=== PATIENT | female | born 1930 | race Caucasian/White ===

== ENCOUNTER 2017-06-12 14:26 | Inpatient (IN) | payer MEDICARE, BC ==
--- NOTE | 2017-06-12 15:32 | RAD ---
PORTABLE UPRIGHT FRONTAL CHEST RADIOGRAPH 06/12/17 COMPARISON: 03/06/16 HISTORY: Nausea and vomiting, possible GI bleeding, black tarry stool. FINDINGS: There is atherosclerotic calcification of the aortic arch. Midline sternotomy wires are present. Ther e is a dual lead transvenous pacing device. There is no pneumothorax or pleural fluid and no focal consolidation or alveolar edema. Mild increase d density is seen in the suprahilar region on the right, similar when compared to the prior exam. IMPRESSION: Stable frontal chest radiograph. POS: FARHAN
[2017-06-12 15:44] LABS: #Basophils 0.1 thou/uL (0.0-0.2); #Lymphocytes 2.6 thou/uL (1.20-3.40); #Neutrophils 15.5 thou/uL (1.40-6.50); %Basophils 0.4 % (0.0-1.0); %Eosinophils 0.2 % (0.0-10.0); %Lymphocytes 13.3 % (21.0-51.0); %Monocytes 5.2 % (0.0-10.0); Hematocrit 21.4 % (36.0-47.0); Mean Platelet Volume 10.1 fL (7.4-10.4); White Blood Cell (WBC) Count 19.2 thou/uL (4.8-10.8)
[2017-06-12] MEDS ORDERED: Pantoprazole 40 MG VIAL ONE (15:52)
[2017-06-12 15:57] LABS: ALT (SGPT) 8 U/L (8-55); AST (SGOT) 20 U/L (5-34); Alkaline Phosphatase 27 U/L (40-150); Anion Gap 15 mmol/L (10-20); BUN (Urea Nitrogen) 114 mg/dL (9.8-20.1); Bilirubin, Total 0.2 mg/dL (0.2-1.2); CK (CPK) 41 U/L (29-168); Calc. Creatinine Clearance 0 mL/min (70-130); Calcium 7.7 mg/dL (7.8-10.44); Carbon Dioxide 20 mmol/L (23-31); Chloride 106 mmol/L (98-107); Estimated GFR-MDRD 17; Globulin 2.6 g/dL (2.4-3.5); Protein, Total 5.5 g/dL (6.0-8.3)
[2017-06-12 16:01] LABS: Troponin I 0.019 ng/mL (< 0.028)
[2017-06-12] MEDS ORDERED: Pantoprazole 80 MG, Admixture Fee 1 EACH in Sodium Chloride 0.9% 100 ML IVP SCH (16:15)
[2017-06-12 16:19] LABS: PTT 33.1 SEC (22.9-36.1); Prothrombin Time 17.1 SEC (12.0-14.7)
[2017-06-12 16:26] LABS: Bacteria/HPF None Seen HPF (None Seen); Bilirubin Negative (Negative); Blood, Urine Moderate (Negative); Glucose, Urine (Dipstick) Negative (Negative); Hyaline Casts/LPF 0-3 HYALINE CAST LPF (0-3 Hyaline); Ketone, Urine Negative (Negative); Nitrite Negative (Negative); Protein, Urine (Dipstick) Negative (Neg-Trace); Squamous Epithelial 0-3 HPF (0-3); Urobilinogen 0.2 mg/dL (0.2-1.0)
[2017-06-12] MEDS ORDERED: Iopamidol 370 76% 50 ML VIAL FS ONE (17:05)
[2017-06-12 17:49] LABS: Lactic Acid - Sepsis 0.6 mmol/L (0.5-2.2)
--- NOTE | 2017-06-12 18:44 | CT ---
CT ABDOMEN AND PELVIS NONCONTRAST 06/12/17 HISTORY: Bilateral flank pain. COMPARISON: 07/17/14. FINDINGS: Each renal collecting system and ureter are now decompressed without stone evident. Calcification ass ociated with each renal hilum is favored to be vascular in origin. Urinary bladder is incompletely di stended. Diverticula described on the previous study are not reliably demonstrated. Some fluid is tracey dent within the upper vaginal canal on today's exam. Lack of contrast limits evaluation for other abnormalities. Oral contrast was administered. There is no evidence of bowel obstruction. Prominent calcification is present throughout the arterial structur es. There are degenerative changes of the lumbar spine. Diverticula arise from the colon without clay cent inflammation. IMPRESSION: 1. No CT evidence of urinary tract obstruction or calcification. 2. Prominent atherosclerosis. 3. No evidence of bowel obstruction. POS: FARHAN
[2017-06-12 21:21] LABS: Troponin I 0.027 ng/mL (< 0.028)
[2017-06-12] MEDS ORDERED: Acetaminophen 325 MG TAB PO PRN (22:10)
[2017-06-12] MEDS ORDERED: Ondansetron ODT 4 MG TAB SL PRN (22:10)
[2017-06-12] MEDS ORDERED: Ondansetron HCl/PF 4 MG/2 ML Vial IVP PRN ×2 (22:10→22:31)
[2017-06-12] MEDS ORDERED: Acetaminophen 500 MG TAB PO PRN (22:31)
[2017-06-12] MEDS ORDERED: Ondansetron ODT 4 MG TAB PO PRN (22:31)
[2017-06-12] MEDS ORDERED: Pantoprazole 40 MG VIAL IVP SCH (22:45)
[2017-06-12] MEDS: Sodium Chloride 0.9% 1,000 ML IV SCH (23:24)
[2017-06-12 23:49] LABS: Troponin I 0.019 ng/mL (< 0.028)
--- NOTE | 2017-06-13 03:00 | HP ---
DATE OF ADMISSION: 06/12/2017 PRIMARY CARE PROVIDER: Bhavesh Pringle MD CHIEF COMPLAINT: Blood in the stool and general weakness. HISTORY OF PRESENT ILLNESS: This is an 86-year-old female, who presents to [facility] and transferred from [facility] complaining of approximately 3-day history of black stool as well as nausea, vomiting with bright red blood on the date of evaluation i n the emergency room. The patient states she has felt weak, lethargic and cold and according to fami ly members had been placed on hospice due to end-stage cardiomyopathy with ejection fraction of 30% r lee ann. The patient apparently was on hospice over approximately several weeks and recently treated fo r suspected urinary tract infection with oral antibiotics. The patient was also noted taking aspirin on a daily basis as needed Aleve. The patient denies any known history of GI bleed; however, underw ent esophageal dilation after a bolus obstruction in 2015 requiring dilation and extraction of the tr apped bolus of food. Patient had mild bleeding after this procedure; however, did not require any sp ecific intervention or transfusions. The patient has noted black stools stated previously as well as vomiting with blood in the emesis. The patient admits to some loose stool over the last 24-48 hours . The patient also admits to decreased appetite, general fatigue and malodorous urine. In the emerg ency room, the patient underwent general evaluation including a CBC showing hemoglobin of 7.0, previo usly noted 8.9 on 03/07/2016. CT imaging of the abdomen and pelvis showed no acute process and patie nt was given intravenous fluids, IV Protonix and 2 units of packed red blood cells. The patient was also noted with hypotension, improving with fluid resuscitation and transfusion of packed red blood c ells. PAST MEDICAL HISTORY: 1. Coronary artery disease, status post coronary artery bypass grafting. 2. Ischemic cardiomyopathy with ejection fraction of 30% to 40%. 3. History of aortic regurgitation, status post aortic valve replacement. 4. Third-degree AV block, status post pacemaker placement. 5. Gastroesophageal reflux disease. 6. History of bolus obstruction due to food. 7. Hypertension. 8. Hyperlipidemia. 9. Osteoporosis. PAST SURGICAL HISTORY: 1. Status post pacemaker placement. 2. Status post aortic valve replacement. 3. Status post EGD with esophageal dilation in 2015. 4. Status post coronary artery bypass grafting. 5. Status post hysterectomy. 6. Status post appendectomy. CURRENT MEDICATIONS: Based on previous admission 02/2016; 1. Ramipril 10 mg 1 tab p.o. daily. 2. Coreg 40 mg p.o. daily. 3. Aspirin 81 mg p.o. daily. 4. Colace 100 mg p.o. b.i.d. p.r.n. 5. Aleve 200 mg p.o. q.6 hours p.r.n. 6. Cetirizine 10 mg p.o. daily. 7. Cranberry extract 1 tablet p.o. daily. 8. Omeprazole 40 mg one tab p.o. daily. 9. Benadryl 25 mg p.o. q.8 hours p.r.n. 10. Fenofibrate 145 mg p.o. daily. 11. Pravachol 80 mg p.o. daily. 12. Loperamide p.r.n. 13. Pepcid 20 mg p.o. b.i.d. ALLERGIES: 1. PENICILLIN. 2. OMNICEF. 3. DEMEROL. 4. MORPHINE SULFATE. FAMILY HISTORY: Positive for coronary artery disease in multiple family members. SOCIAL HISTORY: Patient has a 20-hhsm-sohx smoking history, quitting in the last 4 years. No alcoho l or illicit drug use. with her son at the bedside. Current resident at [facility] in [place], [place]. REVIEW OF SYSTEMS: The following complete review of systems was negative, unless otherwise mentioned in the HPI or below: Constitutional: Weight loss or gain, ability to conduct usual activities. Skin: Rash, itching. Eyes: Double vision, pain. ENT/Mouth: Nose bleeding, neck stiffness, pain, tenderness. Cardiovascular: Palpitations, dyspnea on exertion, orthopnea. Respiratory: Shortness of breath, wheezing, cough, hemoptysis, fever or night sweats. Gastrointestinal: Poor appetite, abdominal pain, heartburn, nausea, vomiting, constipation, or diarr hea. Genitourinary: Urgency, frequency, dysuria, nocturia. Musculoskeletal: Pain, swelling. Neurologic/Psychiatric: Anxiety, depression. Allergy/Immunologic: Skin rash, bleeding tendency. Otherwise negative except as stated per HPI. PHYSICAL EXAMINATION: VITAL SIGNS: Currently, blood pressure 129/42, pulse 76, respiratory rate 24, temperature 98.1 degre es Fahrenheit, O2 saturation 96% on room air. GENERAL APPEARANCE: This is an 86-year-old female, pale appearing, alert, responsive, in n o acute distress. HEENT: Pupils are equal, round, and reactive to light and accommodation. Extraocular muscles are in tact. No scleral icterus, no conjunctival injection. Nares patent. OP is clear. Oral mucosa dry a ppearing. NECK: Supple, no cervical adenopathy, no thyromegaly, no carotid bruits, no JVD appreciated. Cervic al spine with full active and passive range of motion. No meningeal signs noted. CHEST: Lungs are clear to auscultation bilaterally. CARDIOVASCULAR: S1, S2 with 1-2/6 systolic ejection murmur in the right upper sternal border. ABDOMEN: Rounded, soft, nontender, nondistended. Bowel sounds are positive in all four quadrants. There is no hepatosplenomegaly, no abdominal bruits, no rebound or guarding appreciated. EXTREMITIES: Warm and dry with fair turgor. No clubbing, cyanosis or asymmetric edema appreciated. Nailbeds are pale. Capillary refill less than 3 seconds. Pulses palpable distally at the dorsalis pedis, posterior tibial, and popliteal arteries bilaterally. NEUROLOGIC: Cranial nerves II-XII are grossly intact. No focal or lateralizing signs appreciated. The patient not observed ambulatory during this exam. PERTINENT LABORATORY AND X-RAY FINDINGS: Sodium is 136, potassium 4.9, chloride 106, CO2 of 20, BUN 114, creatinine 2.68, estimated GFR 17, glucose 112. Lactic acid level 0.6, calcium 7.7. LFTs withi n normal limits. Troponin I negative x1. Albumin 2.9. CBC showed a white blood cell count of 19.2, hemoglobin 7, hematocrit 21.4, platelet count 208 with 81% neutrophils. PT 17.1, INR 1.4, PTT 33.1. Urinalysis positive for blood, large leukocyte esterase with greater than 50 to too numerous to cou nt WBCs per high-powered field. Portable chest x-ray dated 06/12/2017 showed no acute cardiopulmonar y process. Dual lead transvenous pacemaker device noted. CT of the abdomen and pelvis dated 017 showed no acute intraabdominal process. Prominent atherosclerosis noted. No evidence of bowel o bstruction. EKG dated 06/12/2017 by my interpretation shows a ventricular paced rhythm, heart rates in the 70s. No acute ST-T wave changes noted. ASSESSMENT AND PLAN: 1. Acute upper gastrointestinal bleed. The patient will be admitted to the telemetry unit. Continu e intravenous normal saline at 75 mL per hour. Continued transfusion of 2 units of packed red blood cells with serial H&H monitoring. Avoid NSAIDs and anticoagulation. We will consult GI service in t he a.m. for EGD/colonoscopy. Continue Protonix 40 mg IV q.12 h. Antiemetics as needed. 2. Acute kidney injury on chronic kidney disease stage 3. We will continue intravenous normal salin e as outlined previously. Avoid nephrotoxic agents and contrast media. Repeat creatinine in the a.m . 3. Question of urinary tract infection. We will initiate Levaquin 250 mg IV q.24 hours. Await girma l urine culture results. 4. Hypotension secondarily to #1. We will improve with fluid resuscitation and transfusion of packe d red blood cells. Continue serial monitoring on the telemetry unit. Continue intravenous fluids as outlined previously. Hold all antihypertensive medications. 5. Leukocytosis with neutrophilia. Suspect combination of demargination/stress reaction to #1 in co njunction with possible urinary tract infection. Repeat CBC in the a.m. 6. Ischemic cardiomyopathy with ejection fraction of 30 to 40%. Compensated currently. We will con tinue to monitor given fluid resuscitation as outlined previously. 7. Prophylaxis. Sequential compression devices while in bed. Protonix 40 mg IV q.12 hours. 8. Code status is do not resuscitate, do not intubate, confirmed with patient's son.
[2017-06-13 05:15] LABS: Band 9 % (5-11); Mean Platelet Volume 9.7 fL (7.4-10.4); Neutrophil 70 % (42-75); Red Blood Cell (RBC) Count 3.18 mill/uL (4.20-5.40); White Blood Cell (WBC) Count 17.9 thou/uL (4.8-10.8)
[2017-06-13] MEDS: Pantoprazole 40 MG VIAL IVP SCH ×2 (09:48→20:53)
[2017-06-13] MEDS: Sodium Chloride 0.9% 1,000 ML IV SCH (11:11)
--- NOTE | 2017-06-13 12:39 | PDOC.PN ---
- Subjective Encounter Start Date: 06/13/17 Encounter Start Time: 12:30 Subjective: f/u for GI bleed s/p 2u PRBC's. Small amount of dark stool passed, no -: hematemesis. H/H 05/28 up from 02/15. Remains on Protonix, IVF's. s/p -: EGD showing gastric ulcer with medical mgmt. - Objective Resuscitation Status: Resuscitation Status DNR:Do Not Resuscitate MAR Reviewed: Yes Vital Signs & Weight: Vital Signs (12 hours) Temp Pulse Resp BP Pulse Ox 06/13/17 09:34 98.0 F 72 18 129/60 99 06/13/17 03:13 99.0 F 70 18 121/56 L 94 L Weight Admit Weight 140 lb 6 oz Weight 140 lb 6 oz I&O: 06/12/17 06/13/17 06/14/17 06:59 06:59 06:59 Intake Total 450 Balance 450 Result Diagrams: 06/13/17 13:09 06/13/17 13:09 Additional Labs: Microbiology 06/12/17 20:42 Stool - Pending Stool Occult Blood (HANNAH) - Final 06/12/17 17:52 Venous blood - Right Hand Blood Culture - Preliminary Specimen has been received and culture in progress. No Growth to date. 06/12/17 17:52 Venous blood - Right Arm Blood Culture - Preliminary Specimen has been received and culture in progress. No Growth to date. Laboratory Tests 06/12/17 15:27 WBC 19.2 H Hgb 7.0 L Hct 21.4 L Radiology Reviewed by me: Yes (CT abd/pel - no acute process) EKG Reviewed by me: Yes (Tele - SR) Phys Exam - Physical Examination Constitutional: NAD HEENT: PERRLA, oral pharynx no lesions Neck: no JVD, supple Respiratory: no wheezing, clear to auscultation bilateral Cardiovascular: RRR Gastrointestinal: soft, non-tender, no distention, positive bowel sounds Musculoskeletal: no edema, pulses present Neurological: normal sensation, moves all 4 limbs Psychiatric: A&O x 3 Skin: normal turgor, cap refill <2 seconds Dx/Plan (1) Acute GI bleeding Code(s): K92.2 - GASTROINTESTINAL HEMORRHAGE, UNSPECIFIED Status: Acute Comment: Due to gastric ulcer continue Protonix 40mg IV q12h, IVF's, am CBC (2) Acute blood loss anemia Code(s): D62 - ACUTE POSTHEMORRHAGIC ANEMIA Status: Acute Comment: s/p 2u PRBC's, serial H/H, avoid anticoagulation and NSAIDS (3) Hypotension Status: Acute Comment: Resolved with IVF's and PRBC's (4) Hematemesis Code(s): K92.0 - HEMATEMESIS Status: Acute Comment: Resolved, clear liquids , antiemetics prn (5) JEFF (acute kidney injury) Code(s): N17.9 - ACUTE KIDNEY FAILURE, UNSPECIFIED Status: Acute Comment: Continue IVF's, avoid nephrotoxic meds and contrast media (6) CKD (chronic kidney disease), stage III Code(s): N18.3 - CHRONIC KIDNEY DISEASE, STAGE 3 (MODERATE) Status: Acute (7) UTI (urinary tract infection) Status: Acute Comment: Suspected, await final Ucx, continue Levaquin empirically - Plan plan discussed w/ family, continue antibiotics, family welfare social work professor, out of bed/ ambulate, DVT proph w/SCDs Stable overall -: Continue Protonix 40mg IV q12h -: Clear liquids -: Continue Levaquin 250mg IV daily -: Continue IVF NS at 75ml/h * AM lab: BMP, CBC
[2017-06-13 13:27] LABS: Hematocrit 30.6 % (36.0-47.0)
[2017-06-13 14:06] LABS: ALT (SGPT) 9 U/L (8-55); AST (SGOT) 19 U/L (5-34); Alkaline Phosphatase 28 U/L (40-150); Anion Gap 12 mmol/L (10-20); BUN (Urea Nitrogen) 72 mg/dL (9.8-20.1); Bilirubin, Total 0.4 mg/dL (0.2-1.2); Calc. Creatinine Clearance 22 mL/min (70-130); Calcium 7.6 mg/dL (7.8-10.44); Carbon Dioxide 19 mmol/L (23-31); Chloride 111 mmol/L (98-107); Estimated GFR-MDRD 27; Globulin 2.6 g/dL (2.4-3.5); Protein, Total 5.5 g/dL (6.0-8.3)
[2017-06-13] MEDS ORDERED: Propofol 200 MG/20 ML VIAL ONE (15:10)
[2017-06-13] MEDS ORDERED: Lidocaine 1% PF 5 ML VIAL ONE (15:10)
[2017-06-13] MEDS ORDERED: Ondansetron HCl/PF 4 MG/2 ML Vial IVP PRN (16:15)
--- NOTE | 2017-06-13 18:00 | OP ---
DATE OF PROCEDURE: 06/13/2017 PROCEDURE: Esophagogastroduodenoscopy with biopsy. PREOPERATIVE DIAGNOSIS: Gastrointestinal bleed and anemia of acute blood loss. OPERATIVE NOTE: Informed consent was obtained from the patient. She was sedated with total intraven ous anesthesia. The bite block was placed and the endoscope was advanced easily to the second portio n of the duodenum and retroflexion was performed in the stomach. The esophagus had a ring in the dis winifred esophagus through which the endoscope could be passed without resistance. There was a small hiat al hernia present. There were linear ulcerations in the gastric body. The stomach was otherwise nor mal including retroflexed views. There was a large several centimeter ulcer in the first portion of the duodenum near circumferential that extends on into the proximal second portion of the duodenum. There were smaller ulcers in the second portion of the duodenum. Biopsies were taken from the stomac h to rule out H. pylori. IMPRESSION: 1. Large near circumferential several centimeters ulcer with necrotic base extending from the first portion of the duodenum into the second portion of the duodenum. There were additional smaller ulcer s in the second portion of the duodenum. There is no visible vessel or active bleeding at the time o f the procedure. 2. Additional linear ulcers in the gastric body. 3. Small hiatal hernia. 4. Esophageal ring through which an endoscope could be passed through without resistance. RECOMMENDATIONS: 1. Continue proton pump inhibitor IV. 2. We will start a full liquid diet and advance tomorrow to mechanical soft diet as she tolerates. 3. Check gastrin level. 4. Await histopathology. 5. Avoid NSAIDs. 6. It should be okay to restart low dose aspirin tomorrow if this is deemed necessary by the primary service. She will need to remain on proton pump inhibitor indefinitely.
--- NOTE | 2017-06-13 20:34 | CON ---
DATE OF CONSULTATION: 06/13/2017 CHIEF COMPLAINT: Black stools and weakness. HISTORY OF PRESENT ILLNESS: Ms. Dukes is an 86-year-old woman, who was admitted to the emergency room with a 3-day history of black sticky stools multiple times per day. She has had no nausea or v omiting or abdominal pain with this. She takes aspirin daily. She takes Aleve around once a week fo r back pain. She has had no chest pain or shortness of breath with this. She received 2 units of bl ood and does feel better in general. She had EGD in 02/[address] Ortiz with esophageal dilation of a stricture. She had some bleeding after the dilation, but did not require followup endoscopy for th at. She reports no trouble swallowing since then. PAST MEDICAL HISTORY: Coronary artery disease, ischemic cardiomyopathy with an EF of 30% to 40%, aor tic valve replacement with aortic regurgitation, gastroesophageal reflux disease and stricture on the esophagus, hypertension, hyperlipidemia, and osteoporosis. PAST SURGICAL HISTORY: Pacemaker placement, aortic valve replacement, coronary artery bypass graft, hysterectomy, and appendectomy. FAMILY HISTORY: Negative for GI malignancy. SOCIAL HISTORY: She quit smoking a few years ago. No drugs or alcohol. ALLERGIES: PENICILLIN, OMNICEF, DEMEROL, and MORPHINE. MEDICATIONS: Prior to admission ramipril, Coreg, aspirin, Colace, cetirizine, omeprazole, fenofibrat e, Pravachol, loperamide as needed, Pepcid twice daily, and Aleve as needed. REVIEW OF SYSTEMS: Negative x10 systems reviewed except as stated in the history of present illness. PHYSICAL EXAMINATION: VITAL SIGNS: Temperature 97.1, pulse 77, and blood pressure 119/57. GENERAL: She is in no acute distress, alert and oriented x3. HEENT: Eyes have no scleral icterus. Oropharynx is clear, without lesions. NECK: No cervical or supraclavicular lymphadenopathy. LUNGS: Clear to auscultation bilaterally. HEART: Regular rate and rhythm without murmur. ABDOMEN: Soft, nontender, nondistended. Bowel sounds are present. EXTREMITIES: No lower extremity edema. LABORATORY DATA: Hemoglobin improved from 7-10 after 2 units transfusion. Her white blood cell coun t was elevated at 17.9, platelets 152. INR 1.4, creatinine is 2.68, bilirubin 0.2, AST 20, ALT 8, al kaline phosphatase 27, and albumin 2.9. IMPRESSION: 1. Gastrointestinal bleed, presenting with melena. She has been on aspirin and as needed, Aleve. 2. Anemia of acute blood loss, status post transfusion. 3. History of esophageal stricture requiring dilation. This has been asymptomatic lately. 4. Cardiomyopathy with an ejection fraction of 30% to 40% and coronary disease. She also has a hist ory of aortic valve replacement. RECOMMENDATIONS: 1. Proton-pump inhibitor. 2. Esophagogastroduodenoscopy today. 3. Avoid NSAIDs other than the aspirin.
[2017-06-14 05:44] LABS: Anion Gap 11 mmol/L (10-20); BUN (Urea Nitrogen) 45 mg/dL (9.8-20.1); Calc. Creatinine Clearance 28 mL/min (70-130); Calcium 7.8 mg/dL (7.8-10.44); Carbon Dioxide 20 mmol/L (23-31); Chloride 113 mmol/L (98-107); Estimated GFR-MDRD 36
[2017-06-14 06:06] LABS: Band 2 % (5-11); Hematocrit 29.7 % (36.0-47.0); Mean Platelet Volume 9.3 fL (7.4-10.4); Neutrophil 82 % (42-75); Red Blood Cell (RBC) Count 3.06 mill/uL (4.20-5.40); White Blood Cell (WBC) Count 15.4 thou/uL (4.8-10.8)
[2017-06-14] MEDS: Pantoprazole 40 MG VIAL IVP SCH ×2 (08:57→20:14)
[2017-06-14 12:05] VITALS: BMI 22.8
--- NOTE | 2017-06-14 12:05 | PDOC.PN ---
- Subjective Encounter Start Date: 06/14/17 Encounter Start Time: 11:20 Pt seen and examined, chart reviewed in its entirety. This is my first visit with this patient. S/P EGD yesterday showing large DU, smaller linear gastric ulcers and subclinical esophageal ring. Pt reports no hematemesis, no melena, no N/V, no D/C. Hungry and enjoyed clear breakfast. wants something more substantial. Path report back and neg for metaplasia or H pylori. 10 point ROS perofmred and neg for all systems except as above - Objective Resuscitation Status: Resuscitation Status DNR:Do Not Resuscitate MAR Reviewed: Yes Vital Signs & Weight: Vital Signs (12 hours) Temp Pulse Resp BP Pulse Ox 06/14/17 08:50 98.5 F 100 14 160/59 H 99 06/14/17 04:00 97.8 F 69 20 121/59 L 95 Weight Admit Weight 140 lb 6 oz Weight 141 lb 3 oz I&O: 06/13/17 06/14/17 06/15/17 06:59 06:59 06:59 Intake Total 450 2130 Balance 450 2130 Result Diagrams: 06/14/17 04:04 06/14/17 04:04 Radiology Reviewed by me: Yes EKG Reviewed by me: Yes Phys Exam - Physical Examination Constitutional: NAD HEENT: PERRLA, moist MMs, sclera anicteric, oral pharynx no lesions Neck: no nodes, no JVD, supple, full ROM Respiratory: no wheezing, no rales, no rhonchi, clear to auscultation bilateral Cardiovascular: RRR, no significant murmur, no rub Gastrointestinal: soft, non-tender, no distention, positive bowel sounds Musculoskeletal: no edema, pulses present Neurological: non-focal, normal sensation, moves all 4 limbs Lymphatic: no nodes Psychiatric: normal affect, A&O x 3 Skin: no rash, normal turgor, cap refill <2 seconds Dx/Plan (1) Duodenal ulcer Status: Acute Comment: not actvely bleeding, H/H relatively stable, eatch. can transition to Medical floor (2) Gastric ulcer Code(s): K25.9 - GASTRIC ULCER, UNSP ACUTE OR CHRONIC, W/O HEMOR OR PERF Status: Acute Qualifiers: Gastric ulcer chronicity: chronic Gastric ulcer complication status: with hemorrhage Qualified Code(s): K25.4 - Chronic or unspecified gastric ulcer with hemorrhage Comment: no active bleeding seen. PPI (3) Esophageal ring Code(s): K22.2 - ESOPHAGEAL OBSTRUCTION Status: Chronic Comment: able to pass scope easily. per GI (4) JEFF (acute kidney injury) Code(s): N17.9 - ACUTE KIDNEY FAILURE, UNSPECIFIED Status: Resolved Comment : Continue IVF's, avoid nephrotoxic meds and contrast media. markedly improved today form 2.68 on admit to 1.39 today (5) Acute GI bleeding Code(s): K92.2 - GASTROINTESTINAL HEMORRHAGE, UNSPECIFIED Status: Resolved Comment: Due to gastric ulcer continue Protonix 40mg IV q12h, IVF's, am CBC. to po PPI when okay with GI (6) Acute blood loss anemia Code(s): D62 - ACUTE POSTHEMORRHAGIC ANEMIA Status: Acute Comment: s/p 2u PRBC's, serial H/H, avoid anticoagulation and NSAIDS. stabilizing (7) CKD (chronic kidney disease), stage III Code(s): N18.3 - CHRONIC KIDNEY DISEASE, STAGE 3 (MODERATE) Status: Chronic (8) Hypotension Status: Acute Qualifiers: Hypotension type: orthostatic hypotension Qualified Code(s): I95.1 - Orthostatic hypotension Comment: Resolved with IVF's and PRBC's (9) Coronary artery disease Code(s): I25.10 - ATHSCL HEART DISEASE OF [place] CORONARY ARTERY W/O ANG PCTRS Status: Chronic Qualifiers: Coronary Disease-Associated Artery/Lesion type: bypass graft (10) Gastroesophageal reflux disease Code(s): K21.9 - GASTRO-ESOPHAGEAL REFLUX DISEASE WITHOUT ESOPHAGITIS Status: Chronic Qualifiers: Esophagitis presence: with esophagitis Qualified Code(s): K21.0 - Gastro- esophageal reflux disease with esophagitis (11) History of coronary artery bypass graft Status: Chronic (12) Hyperlipidemia Code(s): E78.5 - HYPERLIPIDEMIA, UNSPECIFIED Status: Chronic Qualifiers: Hyperlipidemia type: unspecified Qualified Code(s): E78.5 - Hyperlipidemia , unspecified (13) Hypertension Code(s): I10 - ESSENTIAL (PRIMARY) HYPERTENSION Status: Chronic Qualifiers: Hypertension type: essential hypertension Qualified Code(s): I10 - Essential (primary) hypertension - Plan cont current plan of care, PT/OT, out of bed/ambulate * .
--- NOTE | 2017-06-14 19:33 | PRG ---
DATE OF SERVICE: 06/14/2017 SUBJECTIVE: Ms. Dukes is tolerating a solid diet this evening. She has no abdominal pain. She has had no further overt GI bleeding. OBJECTIVE: VITAL SIGNS: Temperature 98.0, pulse 71, blood pressure 124/59. GENERAL: She is in no acute distress, alert and oriented x3. HEENT: Eyes have no scleral icterus. LUNGS: Clear to auscultation bilaterally. HEART: Regular rate and rhythm. ABDOMEN: Soft, nontender, nondistended. Bowel sounds are present. EXTREMITIES: No lower extremity edema. LABORATORY DATA: White blood cell count 15.4, hemoglobin 9.8, platelets 188. INR 1.4, creatinine 1. 39. IMPRESSION: 1. Gastrointestinal bleed secondary to very large multiple other gastric and duodenal ulcers. Biops ies are negative for Heliobacter pylori. She has been taking aspirin and Aleve. 2. Anemia of acute blood loss, stable. 3. Acute renal insufficiency appears to be improving. 4. History of severe cardiomyopathy. She had been on hospice, which was only rescinded for this acu te issue and her family wishes for her to go back home on hospice care for her heart problems. RECOMMENDATIONS: 1. Proton pump inhibitor twice daily for a couple of weeks and then back to once daily. 2. Low residue diet for a few days, then she can go back to a regular diet. 3. Stop NSAIDs. She can take aspirin for her heart at 81 mg, but otherwise she should take Tylenol for her back pain rather than the Aleve. 4. I will sign off. Please call if GI can be of assistance.
[2017-06-15 05:16] LABS: #Basophils 0.1 thou/uL (0.0-0.2); #Eosinphils 1.3 thou/uL (0.0-0.7); #Lymphocytes 2.5 thou/uL (1.20-3.40); %Basophils 0.6 % (0.0-1.0); %Eosinophils 9.8 % (0.0-10.0); %Lymphocytes 19.4 % (21.0-51.0); %Monocytes 7.4 % (0.0-10.0); Hematocrit 29.9 % (36.0-47.0); Mean Platelet Volume 9.1 fL (7.4-10.4); Red Blood Cell (RBC) Count 3.13 mill/uL (4.20-5.40); White Blood Cell (WBC) Count 12.7 thou/uL (4.8-10.8)
[2017-06-15 05:37] LABS: Anion Gap 8 mmol/L (10-20); BUN (Urea Nitrogen) 32 mg/dL (9.8-20.1); Calc. Creatinine Clearance 35 mL/min (70-130); Calcium 8.1 mg/dL (7.8-10.44); Carbon Dioxide 22 mmol/L (23-31); Chloride 110 mmol/L (98-107); Estimated GFR-MDRD 46
[2017-06-15] MEDS: Pantoprazole 40 MG VIAL IVP SCH ×2 (08:32→20:53)
--- NOTE | 2017-06-15 10:56 | PDOC.PN ---
- Subjective Encounter Start Date: 06/15/17 Encounter Start Time: 07:00 Pt seen for followup re; GI bleed. Denies chest pain, shortness of breath, fevers or chills. No nausea or vomiting. - Objective Resuscitation Status: Resuscitation Status DNR:Do Not Resuscitate MAR Reviewed: Yes Vital Signs & Weight: Vital Signs (12 hours) Temp Pulse Resp BP Pulse Ox 06/15/17 08:31 97.8 F 80 16 122/56 L 96 06/15/17 04:00 98.6 F 79 20 129/61 95 Weight Admit Weight 140 lb 6 oz Weight 141 lb 3 oz I&O: 06/14/17 06/15/17 06/16/17 06:59 06:59 06:59 Intake Total 2130 1080 140 Balance 2130 1080 140 Result Diagrams: 06/15/17 04:47 06/15/17 04:47 EKG Reviewed by me: Yes (Tele: NSR) Phys Exam - Physical Examination Constitutional: NAD HEENT: PERRLA, moist MMs, sclera anicteric, oral pharynx no lesions Neck: no nodes, no JVD, supple, full ROM Respiratory: no wheezing, no rales, no rhonchi, clear to auscultation bilateral Cardiovascular: RRR, no rub Gastrointestinal: soft, non-tender, no distention, positive bowel sounds Musculoskeletal: pulses present Neurological: moves all 4 limbs Lymphatic: no nodes Psychiatric: normal affect Deviation from normal: Oriented to person and place, not to time Skin: no rash, normal turgor, cap refill <2 seconds Dx/Plan (1) GI bleed Code(s): K92.2 - GASTROINTESTINAL HEMORRHAGE, UNSPECIFIED Status: Acute (2) Acute blood loss anemia Code(s): D62 - ACUTE POSTHEMORRHAGIC ANEMIA Status: Acute (3) Duodenal ulcer Status: Acute (4) UTI (urinary tract infection) Status: Acute (5) JEFF (acute kidney injury) Code(s): N17.9 - ACUTE KIDNEY FAILURE, UNSPECIFIED Status: Resolved (6) Coronary artery disease Code(s): I25.10 - ATHSCL HEART DISEASE OF [place] CORONARY ARTERY W/O ANG PCTRS Status: Chronic Qualifiers: Coronary Disease-Associated Artery/Lesion type: bypass graft (7) Gastroesophageal reflux disease Code(s): K21.9 - GASTRO-ESOPHAGEAL REFLUX DISEASE WITHOUT ESOPHAGITIS Status: Chronic Qualifiers: Esophagitis presence: with esophagitis Qualified Code(s): K21.0 - Gastro- esophageal reflux disease with esophagitis (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 Hemoglobin stable, continue PPI (BIDx 2weeks, then daily). JEFF almost resolved, Cr 1.11 today. Continue Levofloxacin for UTI with presumed Enterococcus, await cultures. Gastrin level pending. Monitor vital signs, titrate antihypertensives as needed. CAD stable. Review of Systems - Review of Systems Constitutional: negative: Fever, Chills, Sweats, Weakness, Malaise Respiratory: negative: Cough, Dry, Shortness of Breath, Hemoptysis, SOB with Excertion, Pleuritic Pain, Sputum, Wheezing Cardiovascular: negative: Chest Pain, Palpitations, Orthopnea, Paroxysmal Noc. Dyspnea, Edema, Light Headedness Gastrointestinal: negative: Nausea, Vomiting, Abdominal Pain, Diarrhea, Constipation, Melena, Hematochezia Genitourinary: negative: Dysuria, Frequency, Incontinence, Hematuria, Retention - Medications/Allergies Allergies/Adverse Reactions: Allergies Allergy/AdvReac Type Severity Reaction Status Date / Time Cephalosporins Allergy Rash Verified 03/07/16 02:51 meperidine HCl [From Demerol] Allergy Verified 03/07/16 02:51 morphine Allergy Verified 03/07/16 02:51 Penicillins Allergy Verified 03/07/16 02:51 Medications: Current Medications Acetaminophen (Tylenol) 1,000 mg PO Q6H PRN PRN Reason: Headache/Fever or Mild Pain Last Admin: 06/14/17 21:39 Dose: 1,000 mg Levofloxacin 250 mg/ Device 50 mls @ 100 mls/hr IVPB Q24HR [facility] Last Admin: 06/15/17 06:06 Dose: 50 mls Ondansetron HCl (Zofran Odt) 4 mg PO Q6H PRN PRN Reason: Nausea/Vomiting Ondansetron HCl (Zofran) 4 mg IVP Q6H PRN PRN Reason: Nausea/Vomiting Pantoprazole Sodium (Protonix) 40 mg IVP Q12HR [facility] Last Admin: 06/15/17 08:32 Dose: 40 mg Sodium Chloride (Flush - Normal Saline) 10 ml IVF Q12HR [facility] Last Admin: 06/15/17 08:31 Dose: 10 ml Sodium Chloride (Flush - Normal Saline) 10 ml IVF PRN PRN PRN Reason: Saline Flush Last Admin: 06/15/17 06:09 Dose: 10 ml
[2017-06-16] MEDS ORDERED: Docusate 100 MG CAP PO PRN (08:09)
[2017-06-16] MEDS ORDERED: Ondansetron ODT 4 MG TAB PO PRN ×2 (08:09→08:30)
[2017-06-16] MEDS ORDERED: Loperamide HCl 2 MG CAP PO PRN (08:15)
[2017-06-16 08:49] LABS: #Basophils 0.1 thou/uL (0.0-0.2); #Eosinphils 1.3 thou/uL (0.0-0.7); #Lymphocytes 2.1 thou/uL (1.20-3.40); #Monocytes 0.8 thou/uL (0.11-0.59); %Basophils 0.7 % (0.0-1.0); %Eosinophils 10.3 % (0.0-10.0); %Lymphocytes 17.2 % (21.0-51.0); %Monocytes 6.5 % (0.0-10.0); Hematocrit 33.7 % (36.0-47.0); Mean Platelet Volume 8.6 fL (7.4-10.4); Red Blood Cell (RBC) Count 3.52 mill/uL (4.20-5.40); White Blood Cell (WBC) Count 12.2 thou/uL (4.8-10.8)
[2017-06-16] MEDS: busPIRone HCl 5 MG TAB PO SCH ×2 (08:53→21:32)
[2017-06-16] MEDS: Furosemide 20 MG TAB PO SCH (08:53)
[2017-06-16] MEDS: Loratadine 10 MG TAB PO SCH (08:53)
[2017-06-16] MEDS: Nitrofurantoin Monohyd/M-Cryst 100 MG CAP PO SCH ×2 (08:53→21:31)
[2017-06-16] MEDS: Carvedilol 6.25 MG TAB PO SCH ×2 (08:53→21:31)
[2017-06-16] MEDS: Pantoprazole 40 MG VIAL IVP SCH ×2 (08:53→21:30)
[2017-06-16 08:56] LABS: Anion Gap 10 mmol/L (10-20); BUN (Urea Nitrogen) 19 mg/dL (9.8-20.1); Calc. Creatinine Clearance 41 mL/min (70-130); Calcium 8.4 mg/dL (7.8-10.44); Carbon Dioxide 21 mmol/L (23-31); Chloride 108 mmol/L (98-107); Estimated GFR-MDRD 56
--- NOTE | 2017-06-16 11:55 | PDOC.PN ---
- Subjective Encounter Start Date: 06/16/17 Encounter Start Time: 07:00 Pt seen for followup re: UTI. Denies chest pain, shortness of breath, fevers or chills. - Objective Resuscitation Status: Resuscitation Status DNR:Do Not Resuscitate MAR Reviewed: Yes Vital Signs & Weight: Vital Signs (12 hours) Temp Pulse Resp BP Pulse Ox 06/16/17 07:39 96 F L 66 16 98 06/16/17 07:37 96 F L 66 16 145/65 H 98 06/16/17 04:00 97.2 F L 86 20 120/58 L 98 Weight Admit Weight 140 lb 6 oz Weight 141 lb 3 oz I&O: 06/15/17 06/16/17 06/17/17 06:59 06:59 06:59 Intake Total 1080 1050 Balance 1080 1050 Result Diagrams: 06/16/17 08:26 06/16/17 08:26 Phys Exam - Physical Examination Constitutional: NAD HEENT: moist MMs Neck: supple Respiratory: clear to auscultation bilateral Cardiovascular: RRR Gastrointestinal: soft Musculoskeletal: pulses present Neurological: moves all 4 limbs Psychiatric: normal affect Skin: no rash Dx/Plan (1) UTI (urinary tract infection) Status: Acute (2) Duodenal ulcer Status: Acute (3) Coronary artery disease Code(s): I25.10 - ATHSCL HEART DISEASE OF [place] CORONARY ARTERY W/O ANG PCTRS Status: Chronic Qualifiers: Coronary Disease-Associated Artery/Lesion type: bypass graft (4) Gastroesophageal reflux disease Code(s): K21.9 - GASTRO-ESOPHAGEAL REFLUX DISEASE WITHOUT ESOPHAGITIS Status: Chronic Qualifiers: Esophagitis presence: with esophagitis Qualified Code(s): K21.0 - Gastro- esophageal reflux disease with esophagitis (5) History of coronary artery bypass graft Status: Chronic (6) Hyperlipidemia Code(s): E78.5 - HYPERLIPIDEMIA, UNSPECIFIED Status: Chronic Qualifiers: Hyperlipidemia type: unspecified Qualified Code(s): E78.5 - Hyperlipidemia , unspecified (7) Hypertension Code(s): I10 - ESSENTIAL (PRIMARY) HYPERTENSION Status: Chronic Qualifiers: Hypertension type: essential hypertension Qualified Code(s): I10 - Essential (primary) hypertension (8) GI bleed Code(s): K92.2 - GASTROINTESTINAL HEMORRHAGE, UNSPECIFIED Status: Resolved (9) Acute blood loss anemia Code(s): D62 - ACUTE POSTHEMORRHAGIC ANEMIA Status: Resolved (10) JEFF (acute kidney injury) Code(s): N17.9 - ACUTE KIDNEY FAILURE, UNSPECIFIED Status: Resolved - Plan DVT proph w/SCDs * . Enterococcus UTI - organism resistant to fluoroquinolones, switch antibiotic to macrobid. Hb stable, continue PPI. CAD stable. Start aspirin and monitor hemoglobin. Review of Systems - Review of Systems Constitutional: negative: Fever, Chills, Sweats, Weakness, Malaise Respiratory: negative: Cough, Dry, Shortness of Breath, Hemoptysis, SOB with Excertion, Pleuritic Pain, Sputum, Wheezing Cardiovascular: negative: Chest Pain, Palpitations, Orthopnea, Paroxysmal Noc. Dyspnea, Edema, Light Headedness - Medications/Allergies Allergies/Adverse Reactions: Allergies Allergy/AdvReac Type Severity Reaction Status Date / Time Cephalosporins Allergy Rash Verified 03/07/16 02:51 meperidine HCl [From Demerol] Allergy Verified 03/07/16 02:51 morphine Allergy Verified 03/07/16 02:51 Penicillins Allergy Verified 03/07/16 02:51 Medications: Current Medications Acetaminophen (Tylenol) 1,000 mg PO Q6H PRN PRN Reason: Headache/Fever or Mild Pain Last Admin: 06/14/17 21:39 Dose: 1,000 mg Buspirone HCl (Buspar) 7.5 mg PO BID [facility] Last Admin: 06/16/17 08:53 Dose: 7.5 mg Carvedilol (Coreg) 12.5 mg PO BID [facility] Last Admin: 06/16/17 08:53 Dose: 12.5 mg Docusate Sodium (Colace) 100 mg PO BID PRN PRN Reason: Constipation Fenofibrate (Tricor) 145 mg PO HS [facility] Furosemide (Lasix) 20 mg PO DAILY [facility] Last Admin: 06/16/17 08:53 Dose: 20 mg Loperamide HCl (Imodium) 2 mg PO QID PRN PRN Reason: Diarrhea/Loose Stools Loratadine (Claritin) 10 mg PO DAILY [facility] Last Admin: 06/16/17 08:53 Dose: 10 mg Nitrofurantoin Macrocrystals (Macrobid) 100 mg PO BID [facility] Last Admin: 06/16/17 08:53 Dose: 100 mg Ondansetron HCl (Zofran) 4 mg IVP Q6H PRN PRN Reason: Nausea/Vomiting Ondansetron HCl (Zofran Odt) 4 mg PO Q6H PRN PRN Reason: Nausea/Vomiting Pantoprazole Sodium (Protonix) 40 mg IVP Q12HR [facility] Last Admin: 06/16/17 08:53 Dose: 40 mg Ramipril (Altace) 10 mg PO HS [facility] Sodium Chloride (Flush - Normal Saline) 10 ml IVF Q12HR [facility] Last Admin: 06/16/17 08:54 Dose: 10 ml Sodium Chloride (Flush - Normal Saline) 10 ml IVF PRN PRN PRN Reason: Saline Flush Last Admin: 06/15/17 20:54 Dose: 10 ml
[2017-06-16] MEDS ORDERED: Ramipril 5 MG CAP PO SCH (21:00)
[2017-06-16] MEDS ORDERED: Fenofibrate Nanocrystallized 145 MG TAB PO SCH (21:00)
[2017-06-17 05:35] LABS: #Basophils 0.1 thou/uL (0.0-0.2); #Eosinphils 1.1 thou/uL (0.0-0.7); #Lymphocytes 2.3 thou/uL (1.20-3.40); #Neutrophils 6.6 thou/uL (1.40-6.50); %Basophils 0.6 % (0.0-1.0); %Eosinophils 9.5 % (0.0-10.0); %Lymphocytes 20.6 % (21.0-51.0); Hematocrit 32.1 % (36.0-47.0); Mean Platelet Volume 8.2 fL (7.4-10.4); Red Blood Cell (RBC) Count 3.33 mill/uL (4.20-5.40)
[2017-06-17 05:54] LABS: Anion Gap 11 mmol/L (10-20); BUN (Urea Nitrogen) 25 mg/dL (9.8-20.1); Calc. Creatinine Clearance 35 mL/min (70-130); Calcium 8.8 mg/dL (7.8-10.44); Carbon Dioxide 22 mmol/L (23-31); Chloride 106 mmol/L (98-107); Estimated GFR-MDRD 46
[2017-06-17] MEDS: Pantoprazole 40 MG VIAL IVP SCH (08:21)
[2017-06-17] MEDS: Carvedilol 6.25 MG TAB PO SCH (08:22)
[2017-06-17] MEDS: Nitrofurantoin Monohyd/M-Cryst 100 MG CAP PO SCH (08:22)
[2017-06-17] MEDS: busPIRone HCl 5 MG TAB PO SCH (08:23)
[2017-06-17] MEDS: Loratadine 10 MG TAB PO SCH (08:23)
[2017-06-17] MEDS: Furosemide 20 MG TAB PO SCH (08:23)
[2017-06-17] MEDS ORDERED: Aspirin 81 mg Enteric Coated Tablet PO SCH (09:00)
[2017-06-17 12:29] VITALS: BP 113/57; TEMP 97.3
--- NOTE | 2017-06-17 16:33 | DIS ---
DATE OF ADMISSION: 06/12/2017 DATE OF DISCHARGE: 06/17/2017 PRIMARY CARE PHYSICIAN: Charles Monet M.D. DISCHARGE DIAGNOSES: 1. Acute upper gastrointestinal bleed. 2. Large duodenal ulcer on esophagogastroduodenoscopy, additional linear ulcers in the gastric body, small hiatal hernia and esophageal ring through which an endoscope could be passed through without a ssistance. 3. Enterococcus urinary tract infection. 4. Acute kidney injury. CONDITION OF PATIENT AT THE TIME OF DISCHARGE: Stable. I assessed Ms. Dukes on the day of disch arge. She denies any chest pain or shortness of breath. Vital signs are stable. S1 and S2 are hear d, regular. Lungs are clear to auscultation bilaterally. DISCHARGE MEDICATIONS: Aspirin 81 mg daily, buspirone 7.5 mg 2 times a day, Coreg 40 mg daily, Colac e 100 mg 2 times a day as needed, fenofibrate 145 mg at bedtime, fexofenadine 180 mg daily, Lasix 20 mg daily, loperamide p.r.n., Macrobid 100 mg 2 times a day, 6 more days; Zofran 4 mg every 6 hours as needed, Protonix 40 mg 2 times a day for 2 weeks, then 40 mg daily, ramipril 10 mg at bedtime, napro xen has been discontinued. CONSULTATIONS DURING THIS HOSPITALIZATION: Gastroenterology, Dr. Chacon. HOSPITAL COURSE: Ms. Dukes is a pleasant 86-year-old lady who was admitted to [facility] on 06/12/2017 for acute upper gastrointestinal bleed. She was seen by Gastroenterolo gy Service and underwent EGD, findings as detailed above. She was cleared to be restarted on aspirin , which should not have any other nonsteroidal anti-inflammatory agents. She was also found to have a urinary tract infection. Urine cultures grew Enterococcus that was resi stant to tetracycline, levofloxacin, and ciprofloxacin, but sensitive to vancomycin, piperacillin, ta zobactam, penicillin, nitrofurantoin, imipenem, gentamicin, ampicillin, and amoxicillin. She has bee n started on Macrobid and is being discharged to home. Prior to admission, she was on hospice care a t home. This was revoked during this admission. She is, however, going back home for hospice care a t home. Many thanks for allowing me to participate in your patient's care. Please feel free to contact me if any questions or concerns. On the day of discharge, she has a white count of 11,000, hemoglobin 10.6, platelet count 225,000. S odium 134, potassium 4.8, blood urea nitrogen 25 and creatinine 1.11. At the time of admission, she had a creatinine of 2.68. DISCHARGE DESTINATION: Home with hospice care. TOTAL AMOUNT OF TIME SPENT COORDINATING THIS DISCHARGE: 32 minutes.
--- NOTE | 2017-07-27 12:42 | EKG ---
Test Reason : Blood Pressure : / mmHG Vent. Rate : 075 BPM Atrial Rate : 075 BPM P-R Int : 186 ms QRS Dur : 164 ms QT Int : 486 ms P-R-T Axes : 096 -58 111 degrees QTc Int : 542 ms Electronic ventricular pacemaker No STEMI Confirmed by KONSTANTIN THOMPSON ([id number]), technical editor FATEMEH CARUSO ([id number] on 07/27/2017 12:42:12 PM Referred By: Confirmed By:KONSTANTIN THOMPSON
== END 2017-06-17 13:17 | disposition hospice, home (50) | DRG 378 ==
LOC: ERS 14:26 → 2NO 22:07 → ONC 06-15 15:57
PROVIDERS: ADMIT Family Medicine; ATTEND Family Medicine
PROC: 30233N1 Transfusion of Nonautologous Red Blood Cells into Peripheral Vein, Percutaneous Approach (ICD-10-PCS; 2017-06-12)
PROC: 0DB68ZX Excision of Stomach, Via Natural or Artificial Opening Endoscopic, Diagnostic (ICD-10-PCS; principal; 2017-06-13)
DX: K26.4 Chronic or unspecified duodenal ulcer with hemorrhage (principal); N17.9 Acute kidney failure, unspecified; I25.5 Ischemic cardiomyopathy; K22.2 Esophageal obstruction; N39.0 Urinary tract infection, site not specified; Z95.1 Presence of aortocoronary bypass graft; I25.10 Atherosclerotic heart disease of native coronary artery without angina pectoris; D62 Acute posthemorrhagic anemia; K44.9 Diaphragmatic hernia without obstruction or gangrene; Z66 Do not resuscitate; K25.4 Chronic or unspecified gastric ulcer with hemorrhage; B95.2 Enterococcus as the cause of diseases classified elsewhere; Z95.2 Presence of prosthetic heart valve; Z95.0 Presence of cardiac pacemaker; K21.9 Gastro-esophageal reflux disease without esophagitis; Z87.891 Personal history of nicotine dependence; E78.5 Hyperlipidemia, unspecified; I95.1 Orthostatic hypotension; I12.9 Hypertensive chronic kidney disease with stage 1 through stage 4 chronic kidney disease, or unspecified chronic kidney disease; N18.3 Chronic kidney disease, stage 3 (moderate)
CPT/HCPCS: 36415; 36430; 51701; 71010; 74176; 80048; 80053; 81003; 81015; 82274; 82553; 82941; 83605; 84484; 85007; 85025; 85027; 85610; 85730; 86850; 86900; 86901; 87040; 87086; 87186; 88305; 88312; 93005; 96365; 96366; 96375; A4216; A4353; C9113; J0744; J1642; J1956; J2001; J2704; J7050; P9016